=== PATIENT | male | born 1960 | race Caucasian/White ===

== ENCOUNTER 2016-10-12 11:22 | Inpatient (IN) | payer OTHER ==
[~2016-10-12] VITALS: Ht 190.5 cm; Wt 107.5 kg
[~2016-10-12 11:22] MED LIST: ABIL30TA2 PO; ARIP1TAB7 PO; ASPI325T PO; ATOR1TAB18 PO; ISOS20TA PO; ISOS30TA3 PO; LAMO200T PO; LIPI80TA PO; METO50TA11 PO; TOPR50TA PO; TRAZ100T4 PO
[2016-10-12 12:25] LABS: AMPHETAMINE, URINE NEG (NEG); BARBITURATES, URINE NEG (NEG); COCAINE, URINE NEG (NEG)
[2016-10-12 12:28] LABS: AUTOMATED NEUTROPHIL # 5.7 TH/MM3 (1.8-7.7); BASOPHIL # 0.2 TH/MM3 (0-0.2); BASOPHIL % 1.5 % (0.0-2.0); EOSINOPHIL # 0.3 TH/MM3 (0-0.4); EOSINOPHIL % 2.6 % (0.0-4.0); HEMATOCRIT 47.5 % (39.0-51.0); HEMO FLAGS DIFF FINAL; LYMPH % 27.1 % (9.0-44.0); LYMPHOCYTE # 2.9 TH/MM3 (1.0-4.8); MEAN CELL VOLUME 96.4 FL (80.0-100.0); MEAN CORPUSCULAR HEMOGLOBIN 33.7 PG (27.0-34.0); MONO % 14.7 % (0.0-8.0); NEUT % 54.1 % (16.0-70.0); PLATELET COUNT 209 TH/MM3 (150-450); RED BLOOD COUNT 4.92 MIL/MM3 (4.50-5.90); RED CELL DISTRIBUTION WIDTH 13.9 % (11.6-17.2); WHITE BLOOD COUNT 10.6 TH/MM3 (4.0-11.0)
[2016-10-12 12:36] LABS: ALT (GPT) 78 U/L (12-78); ANION GAP 9 MEQ/L (5-15); AST (GOT) 61 U/L (15-37); BLOOD UREA NITROGEN 10 MG/DL (7-18); CHLORIDE 104 MEQ/L (98-107); GLOMERULAR FILTRATION RATE 75 ML/MIN (>89); POTASSIUM 4.3 MEQ/L (3.5-5.1); SODIUM (NA) 140 MEQ/L (136-145)
[2016-10-12 12:38] LABS: ALKALINE PHOSPHATASE 114 U/L (45-117); TOTAL BILIRUBIN ADULT 0.5 MG/DL (0.2-1.0)
--- NOTE | 2016-10-12 12:47 | PD ---
HPI Chief Complaint: Psychiatric Symptoms Time Seen by Provider: 12:43 Travel History International Travel<30 days: No Contact w/Intl Traveler<30days: No Traveled to known affect area: No History of Present Illness HPI 56-year-old male that presents to the ED for evaluation of psych. [facility] ideation. Patient states that he is bipolar and his been out of his medications for a couple days. Per patient he is also having visual and auditory hallucinations and he feels suicidal. Per patient he symptoms are moderate. He denies any actual plan but states that he wants to . He denies any homicidal ideation. He does have a history of previous ACS as well as hypertension and states that he does take these medications but he does not take the psychiatric medications. Patient is a poor historian and doesn't really know what medications he takes. All he knows is he takes metoprolol and some other medications. No fevers chills or sweats. No other medical complaints. Symptoms have been worsening for the past couple days since he stopped taking his medications. Nothing makes this better or worse. PFSH Past Medical History Asthma: No Bipolar Disorder: Yes Anxiety: Yes Depression: Yes Heart Rhythm Problems: No Cancer: No Cardiac Catheterization: Yes Cardiovascular Problems: Yes (Stents X9) High Cholesterol: Yes Chest Pain: Yes Congestive Heart Failure: Yes COPD: Yes Coronary Artery Disease: Yes Diminished Hearing: No Endocrine: No Genitourinary: No Hypertension: Yes Immune Disorder: No Musculoskeletal: No Neurologic: No Psychiatric: Yes Reproductive: No Respiratory: Yes Sleep Apnea: No Past Surgical History Body Medical Devices: Stents Cardiac Surgery: Yes (9 cardiac stents ) Coronary Stent: Yes (9) Social History Alcohol Use: No Tobacco Use: No Substance Use: No Allergies-Medications (Allergen,Severity, Reaction): Coded Allergies: Cogentin (Verified Allergy, Severe, Irritability/Anxiety, 07/16/16) Violent behavior Benztropine (Verified Allergy, Unknown, 07/30/16) Haldol (Verified Allergy, Unknown, 07/16/16) Lisinopril (Verified Allergy, Unknown, 07/16/16) Skillman (Verified Allergy, Unknown, 07/30/16) Niacin (Verified Allergy, Unknown, 07/30/16) Reported Meds & Prescriptions Reported Meds & Active Scripts Active Abilify (Aripiprazole) 30 Mg Tab 30 Mg PO DAILY 10 Days Reported Trazodone (Trazodone HCl) 100 Mg Tab 100 Mg PO Lamotrigine 200 Mg Tab 200 Mg PO Toprol XL (Metoprolol Succinate) 50 Mg Tab 100 Mg PO Isosorbide Mononitrate ER (Isosorbide Mononitrate) 30 Mg Keisha 15 Mg PO Lipitor (Atorvastatin Calcium) 80 Mg Tab 80 Mg PO HS Aspirin 325 Mg Tab 325 Mg PO DAILY Abilify (Aripiprazole) 20 Mg Tab 30 Mg PO Metoprolol Succinate ER 24 HR (Metoprolol Succinate) 50 Mg Tab 50 Mg PO DAILY Isosorbide Mononitrate 20 Mg Tab 15 Mg PO DAILY Atorvastatin (Atorvastatin Calcium) 80 Mg Tab 80 Mg PO HS Aspirin 325 Mg Tab 325 Mg PO DAILY Review of Systems ROS Limitations: Psychotic, Poor Historian General / Constitutional: No: Fever, Chills, Weight Gain, Weight Loss, Other Eyes: No: Diploplia, Blurred Vision, Photophobia, Drainage, Redness, Foreign Body Sensation, Pain, Tearing, Blind Spots, Visual changes, Blindness, Other HENT: No: Headaches, Vertigo, Lightheadedness, Sore Throat, Rhinitis, Rhinorrhea, Congestion, Nosebleed, Neck Stiffness, Neck Pain, Masses, Gingival Bleeding, Dental Difficulties, Ear Discharge, Earache, Other Cardiovascular: No: Chest Pain or Discomfort, Palpitations, Irregular Rhythm, Tachycardia, Diaphoresis, Syncope, Dyspnea on exertion, Varicosities, Edema, Cyanosis, Varicosities, Phlebitis, Claudication, Other Respiratory: No: Cough, Shortness of Breath, Wheezing, Sneezing, Orthopnea, Hemoptysis, Stridor, Night Sweats, Pleuritic Pain, Other Gastrointestinal: No: Nausea, Vomiting, Diarrhea, Abdominal Pain, Hematemesis, Hematochezia, Constipation, Changes in Bowel Habits, Indigestion, Dysphagia, Loss of Appetite, Other Genitourinary: No: Urgency, Frequency, Dysuria, Nocturia, Hematuria, Decreased Urinary Output, Oliguria, Hesitancy, Dribbling, Incontinence, Pelvic Pain, Flank Pain, Dyspareunia, Discharge, Dysmenorrhea, Menorrhagia, Metorrhagia, Vaginal Bleeding, Other Musculoskeletal: No: Myalgias, Arthralgias, Limited ROM, Weakness, Cramping, Edema, Pain, Atrophy, Other Neurologic: No: Weakness, Dizziness, Syncope, Focal Abnormalities, Coordination Problem, Tremor, Ataxia, Headache, Change in Mentation, Slurred Speech, Paresthesia, Incontinence, Seizures, Sensory Disturbance, Other Psychiatric: Positive: Depression, Suicidal Ideations, Disorder of Thought, No : Anxiety, Mood Disorder, Substance Abuse, Homicidal Ideation, Other Endocrine: No: Heat Intolerance, Cold Intolerance, Polyuria, Polydipsia, Other Hematologic/Lymphatic: No: Easy Bruising, Lymph Node Enlargement, Other Physical Exam Exam Limitations: Poor Historian, Psychotic Narrative GENERAL: SKIN: Warm and dry. HEAD: Atraumatic. Normocephalic. EYES: Pupils equal and round. No scleral icterus. No injection or drainage. ENT: No nasal bleeding or discharge. Mucous membranes pink and moist. Tongue is midline. No uvula deviation. NECK: Trachea midline. No JVD. CARDIOVASCULAR: Regular rate and rhythm. No murmurs, S3, S4. RESPIRATORY: No accessory muscle use. Clear to auscultation. Breath sounds equal bilaterally. GASTROINTESTINAL: Abdomen soft, non-tender, nondistended. Hepatic and splenic margins not palpable. MUSCULOSKELETAL: Extremities without clubbing, cyanosis, or edema. No obvious deformities. Full range of motion of the upper and lower extremity bilaterally. 2+ pulses bilaterally. NEUROLOGICAL: Awake and alert. No obvious cranial nerve deficits. Motor grossly within normal limits. Five out of 5 muscle strength in the arms and legs. Normal speech. PSYCHIATRIC: Psychotic mood and affect; insight and judgment questionable secondary to psychosis Data Data Orders Complete Blood Count With Diff (10/12/16 11:37) Comprehensive Metabolic Panel (10/12/16 11:37) Psych Screen (10/12/16 11:37) Drug Screen, Random Urine (10/12/16 11:37) Alcohol (Ethanol) (10/12/16 11:37) Labs Laboratory Tests Test 10/12/16 10/12/16 11:35 11:55 White Blood Count 10.6 TH/MM3 Red Blood Count 4.92 MIL/MM3 Hemoglobin 16.6 GM/DL Hematocrit 47.5 % Mean Corpuscular Volume 96.4 FL Mean Corpuscular Hemoglobin 33.7 PG Mean Corpuscular Hemoglobin 35.0 % Concent Red Cell Distribution Width 13.9 % Platelet Count 209 TH/MM3 Mean Platelet Volume 8.7 FL Neutrophils (%) (Auto) 54.1 % Lymphocytes (%) (Auto) 27.1 % Monocytes (%) (Auto) 14.7 % Eosinophils (%) (Auto) 2.6 % Basophils (%) (Auto) 1.5 % Neutrophils # (Auto) 5.7 TH/MM3 Lymphocytes # (Auto) 2.9 TH/MM3 Monocytes # (Auto) 1.6 TH/MM3 Eosinophils # (Auto) 0.3 TH/MM3 Basophils # (Auto) 0.2 TH/MM3 CBC Comment DIFF FINAL Differential Comment Sodium Level 140 MEQ/L Potassium Level 4.3 MEQ/L Chloride Level 104 MEQ/L Carbon Dioxide Level 27.0 MEQ/L Anion Gap 9 MEQ/L Blood Urea Nitrogen 10 MG/DL Creatinine 1.02 MG/DL Estimat Glomerular Filtration 75 ML/MIN Rate Random Glucose 75 MG/DL Calcium Level 9.4 MG/DL Total Bilirubin 0.5 MG/DL Aspartate Amino Transf 61 U/L (AST/SGOT) Alanine Aminotransferase 78 U/L (ALT/SGPT) Alkaline Phosphatase 114 U/L Total Protein 8.4 GM/DL Albumin 3.9 GM/DL Ethyl Alcohol Level 4 MG/DL Urine Opiates Screen NEG Urine Barbiturates Screen NEG Urine Amphetamines Screen NEG Urine Benzodiazepines Screen NEG Urine Cocaine Screen NEG Urine Cannabinoids Screen NEG MDM Medical Decision Making Medical Screen Exam Complete: Yes Emergency Medical Condition: Yes Medical Record Reviewed: Yes Interpretation(s) CBC & BMP Diagram 10/12/16 11:35 LFTs WNL tox negative Differential Diagnosis Depression versus suicidal ideation versus anxiety versus adjustment disorder versus mood disorder versus bipolar disorder versus schizophrenia versus paranoid disorder versus psychosis versus substance abuse versus alcohol abuse versus alcohol induced psychosis versus homicidality addition versus cutting versus personality disorder Narrative Course 56-year-old male that presents to the ED for evaluation of psych. Patient was properly examined and was found to have signs and symptoms consistent with psychiatric illness. Labs were drawn. Patient was medically cleared. Okay to be seen by psych. Mental health screening was discussed with the patient. Diagnosis Primary Impression: Bipolar disorder current episode depressed Qualified Code: F31.5 - Bipolar disorder, current episode depressed, severe, with psychotic features Yoel Alva Oct 12, 2016 12:47
[2016-10-12 13:12] VITALS: BP 101/56; PULSE 64; RESP 16; TEMP 98.1; O2SAT 95
[2016-10-12] MEDS ORDERED: LORA10TA PO (14:11)
[2016-10-12] MEDS ORDERED: NITR1SUB3 SL (14:11)
--- NOTE | 2016-10-12 16:01 | PD ---
History of Present Illness Chief Complaint: Psychiatric Symptoms Time Seen by Provider: 15:25 Travel History International Travel<30 Days: No Contact w/Intl Traveler<30days: No Known affected area: No Legal Status Legal Status: Enrique Act Enrique Act Signed By: [facility] History of Present Illness: History of Present Illness HPI 56-year-old male with history of bipolar disorder under a BA initiated by [facility] psychiatrist. As per the BA report patient is psychotic and verbalizes auditory hallucinations and suicidal ideation. The ed documentation is as follows; " Patient states that he is bipolar and his been out of his medications for a couple days. Per patient he is also having visual and auditory hallucinations and he feels suicidal. He denies any actual plan but states that he wants to . He denies any homicidal ideation. " Patient is seen in J pod. He is in bed with eyes closed. He responds to his name called. He appears regressed and childlike. He answers some questions but does not elaborate. no eye contact. During interview he scans the room and looks behind him . When asked the reason states " I hear voices and the mccabe feel like they are breathing. The voices tell me it's time to ". He also tells me that he has not been sleeping well, is having more nightmares and that he feels depressed. he reports medication compliance. Has been residing at the [facility]. Current toxicology is negative. His previous hospitalization was in May 2016 and he was last evaluated in the ED in Jul 2016. PFSH Past Medical History Asthma: No Bipolar Disorder: Yes Anxiety: Yes Depression: Yes Heart Rhythm Problems: No Cancer: No Cardiac Catheterization: Yes Cardiovascular Problems: Yes (Stents X9) High Cholesterol: Yes Chest Pain: Yes Congestive Heart Failure: Yes COPD: Yes Coronary Artery Disease: Yes Diminished Hearing: No Endocrine: No Genitourinary: No Hypertension: Yes Immune Disorder: No Musculoskeletal: No Neurologic: No Psychiatric: Yes Reproductive: No Respiratory: Yes Myocardial Infarction: Yes (X5) Sleep Apnea: No Past Surgical History Body Medical Devices: Stents Cardiac Surgery: Yes (9 cardiac stents ) Coronary Stent: Yes (9) Other Surgery: Yes (Stents) Psychiatric History Psychiatric History Hx Psychiatric Treatment: HE WAS [facility] H[facility] ADMITTED TO [facility] IN MAY 2016 AND IN APR, [facility] History of Inpatient Treatment: Yes Guns or firearms in home: No Social History Single male who is living at the [facility]. he is originally from [place]. He provides no other information. Hx Alcohol Use: No Hx Tobacco Use: No Hx Substance Use: No Substance Use Type: Marijuana Hx of Substance Use Treatment: No Family Psychiatric History Unknown Allergies-Medications (Allergen,Severity, Reaction): Coded Allergies: Cogentin (Verified Allergy, Severe, Irritability/Anxiety, 07/16/16) Violent behavior Benztropine (Verified Allergy, Unknown, 07/30/16) Haldol (Verified Allergy, Unknown, 07/16/16) Lisinopril (Verified Allergy, Unknown, 07/16/16) Morenci (Verified Allergy, Unknown, 07/30/16) Niacin (Verified Allergy, Unknown, 07/30/16) Reported Meds & Prescriptions Reported Meds & Active Scripts Active Abilify (Aripiprazole) 30 Mg Tab 30 Mg PO DAILY 10 Days Reported Loratadine 10 Mg Tab 10 Mg PO DAILY PRN Nitroglycerin SL (Nitroglycerin) 0.4 Mg Subl 0.4 Mg SL DIRECTED PRN ONE TABLET UNDER THE TONGUE NEEDED FOR CHEST PAIN, MAY REPEAT EVERY FIVE MINUTES FOR A TOTAL OF 3 DOSES OR CALL 911 IF NO RELIEF Trazodone (Trazodone HCl) 100 Mg Tab 100 Mg PO Lamotrigine 200 Mg Tab 200 Mg PO BID Isosorbide Mononitrate ER (Isosorbide Mononitrate) 30 Mg Keisha 15 Mg PO Metoprolol Succinate ER 24 HR (Metoprolol Succinate) 50 Mg Tab 50 Mg PO DAILY Atorvastatin (Atorvastatin Calcium) 80 Mg Tab 80 Mg PO HS Aspirin 325 Mg Tab 325 Mg PO DAILY Review of Systems ROS Limitations: Psychotic Exam Alert: Yes [place]: Person (ox4) Mood: Depressed Affect: Restricted Speech: Clear (minimal interaction) Eye Contact: None Memory Intact: Comment (not tetsed) Hallucinations: Auditory, Visual Delusions: No Suicidal: Ideation (unable to contrat.) Homicidal: Ideation (deneis any) Insight/Judgement Poor. Poor MDM Medical Decision Making Medical Record Reviewed: Yes Assessment/Plan 56 year old male , under a BA initiated by [facility] the [facility]. Patient presents with psychosis including AH that say " time to ". He endorses feeling increasingly depressed as well despite medication compliance reported to me. There is conflicting information as he reported to ed that he was not taking his medication. At this time he will be admitted for further evaluation, to maintain safety and to adjust medications. Orders Complete Blood Count With Diff (10/12/16 11:37) Comprehensive Metabolic Panel (10/12/16 11:37) Psych Screen (10/12/16 11:37) Drug Screen, Random Urine (10/12/16 11:37) Alcohol (Ethanol) (10/12/16 11:37) Diet Regular Basic (10/12/16 Dinner) Results Vital Signs Date Time Temp Pulse Resp B/P Pulse Ox O2 Delivery O2 Flow Rate FiO2 10/12/16 13:12 98.1 64 16 101/56 95 Room Air Laboratory Tests Test 10/12/16 10/12/16 11:35 11:55 White Blood Count 10.6 Red Blood Count 4.92 Hemoglobin 16.6 Hematocrit 47.5 Mean Corpuscular Volume 96.4 Mean Corpuscular Hemoglobin 33.7 Mean Corpuscular Hemoglobin 35.0 Concent Red Cell Distribution Width 13.9 Platelet Count 209 Mean Platelet Volume 8.7 Neutrophils (%) (Auto) 54.1 Lymphocytes (%) (Auto) 27.1 Monocytes (%) (Auto) 14.7 Eosinophils (%) (Auto) 2.6 Basophils (%) (Auto) 1.5 Neutrophils # (Auto) 5.7 Lymphocytes # (Auto) 2.9 Monocytes # (Auto) 1.6 Eosinophils # (Auto) 0.3 Basophils # (Auto) 0.2 CBC Comment DIFF FINAL Differential Comment Sodium Level 140 Potassium Level 4.3 Chloride Level 104 Carbon Dioxide Level 27.0 Anion Gap 9 Blood Urea Nitrogen 10 Creatinine 1.02 Estimat Glomerular Filtration 75 Rate Random Glucose 75 Calcium Level 9.4 Total Bilirubin 0.5 Aspartate Amino Transf 61 (AST/SGOT) Alanine Aminotransferase 78 (ALT/SGPT) Alkaline Phosphatase 114 Total Protein 8.4 Albumin 3.9 Ethyl Alcohol Level 4 Urine Opiates Screen NEG Urine Barbiturates Screen NEG Urine Amphetamines Screen NEG Urine Benzodiazepines Screen NEG Urine Cocaine Screen NEG Urine Cannabinoids Screen NEG Diagnosis Primary Impression: Bipolar disorder current episode depressed Admitting Information Admitting Physician Requests: Admit (Dr. Lopez) Problem Qualifiers Primary Impression: Bipolar disorder current episode depressed Qualified Code: F31.5 - Bipolar disorder, current episode depressed, severe, with psychotic features Luciana Mcnamara Oct 12, 2016 16:01
[2016-10-12] MEDS ORDERED: MAGNESIUM HYDROXIDE SUSP 30 ML CUP PO PRN (16:15)
[2016-10-12] MEDS ORDERED: ALUMINUM/MAGNESIUM/SIMETH 30 ML CUP PO PRN (16:15)
[2016-10-12] MEDS ORDERED: ACETAMINOPHEN 325 MG TAB PO PRN (16:15)
[2016-10-12] MEDS ORDERED: NITROGLYCERIN 0.4 MG SL 25 TABS/BTL SL PRN (16:45)
[2016-10-12 18:19] VITALS: BP 156/80; PULSE 65; RESP 18; O2SAT 96
[2016-10-12 18:31] VITALS: BP 127/70; PULSE 60; TEMP 98.3
[2016-10-12] MEDS: ATORVASTATIN 80 MG TAB PO SCH (20:55)
[2016-10-12] MEDS: lamoTRIgine 100 MG TAB PO SCH (20:55)
[2016-10-13 05:44] VITALS: BP 124/65; PULSE 73; RESP 16; TEMP 98.3; O2SAT 96
[2016-10-13] MEDS: ASPIRIN 325 MG TAB PO SCH (08:24)
[2016-10-13] MEDS: ARIPiprazole 30 MG TAB PO SCH (08:24)
[2016-10-13] MEDS: lamoTRIgine 100 MG TAB PO SCH ×2 (08:25→20:39)
[2016-10-13] MEDS: METOPROLOL SUCCINATE 50 MG EXTENDED RELEASE TAB PO SCH (08:25)
[2016-10-13 11:42] LABS: ANION GAP 7 MEQ/L (5-15); BICARBONATE 29.3 MEQ/L (21.0-32.0); BLOOD UREA NITROGEN 11 MG/DL (7-18); CHLORIDE 103 MEQ/L (98-107); GLOMERULAR FILTRATION RATE 69 ML/MIN (>89); HDL CHOLESTEROL 32.8 MG/DL (40.0-60.0); LDL CHOLESTEROL 63 MG/DL (0-99); POTASSIUM 4.3 MEQ/L (3.5-5.1); SODIUM (NA) 139 MEQ/L (136-145)
[2016-10-13 15:38] LABS: HEMOGLOBIN A1b 1.6 %; HEMOGLOBIN Ao 85.3 %; HEMOGLOBIN LA1C 2.1 %; HEMOGLOBIN P3 3.8 %
[2016-10-13 19:00] VITALS: BP 125/70; PULSE 56; RESP 16; TEMP 98.4; O2SAT 96
[2016-10-13] MEDS ORDERED: LORATADINE 10 MG TAB PO PRN (19:45)
[2016-10-13] MEDS ORDERED: ACETAMINOPHEN 325 MG TAB PO PRN (19:45)
[2016-10-13] MEDS ORDERED: MAGNESIUM HYDROXIDE SUSP 30 ML CUP PO PRN (19:45)
[2016-10-13] MEDS ORDERED: ALUMINUM/MAGNESIUM/SIMETH 30 ML CUP PO PRN (19:45)
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
[2016-10-13] MEDS: traZODone HCL 50 MG TAB PO PRN (20:39)
[2016-10-13] MEDS: ATORVASTATIN 80 MG TAB PO SCH (20:39)
[2016-10-14 06:23] VITALS: BP 101/50; PULSE 56; RESP 16; TEMP 97.2; O2SAT 98
[2016-10-14 07:37] LABS: ANION GAP 9 MEQ/L (5-15); BICARBONATE 28.4 MEQ/L (21.0-32.0); BLOOD UREA NITROGEN 13 MG/DL (7-18); CHLORIDE 104 MEQ/L (98-107); GLOMERULAR FILTRATION RATE 63 ML/MIN (>89); HDL CHOLESTEROL 34.3 MG/DL (40.0-60.0); LDL CHOLESTEROL 67 MG/DL (0-99); POTASSIUM 4.1 MEQ/L (3.5-5.1); SODIUM (NA) 141 MEQ/L (136-145)
--- NOTE | 2016-10-14 08:27 | PD.CONS ---
[facility] Request[facility] By Psychiatry Team Reason for Consult Medical management Primary Care Physician [facility] Diagnoses: History of Present Illness Pt. is 56-year-old male with primary medical history of HTN, [place] 5, TIA, HLD who came in today ED under Enrique act by the [place] secondary to suicidal ideation. As per record, patient states that he is bipolar and he cannot of his medications for a few days. Patient is having visual and auditory hallucinations and he feels suicidal. He is now admitted to inpatient psychiatry unit for further evaluation. Consulted for medical management. Patient seen today. Reports he is doing well. States that he is still having visual and auditory hallucinations. Appears to be calm. Verified his medical problems. States is taking isosorbide, atorvastatin and metoprolol. Denies pain and discomfort. Denies SOB/ dyspnea. Denies chest pain, palpitations, headaches, dizziness. Denies fevers, chills, n/v/d. Review of Systems Except as stated in HPI: all other systems reviewed are Neg Past Family Social History Allergies: Coded Allergies: Cogentin (Verified Allergy, Severe, Irritability/Anxiety, 07/16/16) Violent behavior Benztropine (Verified Allergy, Unknown, 07/30/16) Haldol (Verified Allergy, Unknown, 07/16/16) Lisinopril (Verified Allergy, Unknown, 07/16/16) [place] (Verified Allergy, Unknown, 07/30/16) Niacin (Verified Allergy, Unknown, 07/30/16) Past Medical History CAD HTN HLD [place] x5 Bipolar disorder Past Surgical History Cardiac Stenting Cardiac Cath Reported Medications Abilify (Aripiprazole) 30 Mg Tab 30 Mg PO DAILY 10 Days Trazodone (Trazodone HCl) 100 Mg Tab 100 Mg PO Lamotrigine 200 Mg Tab 200 Mg PO Toprol XL (Metoprolol Succinate) 50 Mg Tab 100 Mg PO Isosorbide Mononitrate ER (Isosorbide Mononitrate) 30 Mg Keisha 15 Mg PO Lipitor (Atorvastatin Calcium) 80 Mg Tab 80 Mg PO HS Aspirin 325 Mg Tab 325 Mg PO DAILY Metoprolol Succinate ER 24 HR (Metoprolol Succinate) 50 Mg Tab 50 Mg PO DAILY Isosorbide Mononitrate 20 Mg Tab 15 Mg PO DAILY Atorvastatin (Atorvastatin Calcium) 80 Mg Tab 80 Mg PO HS Aspirin 325 Mg Tab 325 Mg PO DAILY Active Ordered Medications Current Medications Medications (Trade) Dose Ordered Sig/Jose Roberto Route Start Time Stop Time Status Last Admin (Tylenol) 650 mg Q4H PRN PO 10/12/16 16:15 (Milk Of Magnesia Liq) 30 ml DAILY PRN PO 10/12/16 16:15 (Mag-Al Plus Susp Liq) 30 ml Q6H PRN PO 10/12/16 16:15 (Abilify) 30 mg DAILY PO 10/13/16 09:00 10/13/16 08:24 (Aspirin) 325 mg DAILY PO 10/13/16 09:00 10/13/16 08:24 (Lipitor) 80 mg HS PO 10/12/16 21:00 10/13/16 20:39 (LaMICtal) 200 mg BID PO 10/12/16 21:00 10/13/16 20:39 (Toprol Xl) 50 mg DAILY PO 10/13/16 09:00 10/13/16 08:25 (Nitrostat Sl) 0.4 mg UNSCH PRN SL 10/12/16 16:45 (Tylenol) 650 mg Q4H PRN PO 10/13/16 19:45 (Milk Of Magnesia Liq) 30 ml DAILY PRN PO 10/13/16 19:45 (Mag-Al Plus Susp Liq) 30 ml Q6H PRN PO 10/13/16 19:45 (Habitrol 21 Mg Patch.24 Hr) 1 patch DAILY T-DERMAL 10/14/16 09:00 (Desyrel) 50 mg HS PRN PO 10/13/16 19:45 10/13/16 20:39 (Claritin) 10 mg DAILY PRN PO 10/13/16 19:45 Family History Does not know family medical history Social History Denies alcohol use Denies illicit drug use Tobacco use half a pack per day, trying to cut back he used to smoke 2-3 packs per day Physical Exam Vital Signs Vital Signs Date Time Temp Pulse Resp B/P Pulse Ox O2 Delivery O2 Flow Rate FiO2 10/14/16 06:23 97.2 56 16 101/50 98 10/13/16 19:00 98.4 56 16 125/70 96 Physical Exam GENERAL: This is a well-nourished, well-developed patient, in no apparent distress. SKIN: No rashes, ecchymoses or lesions. Cool and dry. HEAD: Atraumatic. Normocephalic. No temporal or scalp tenderness. EYES: Pupils equal round and reactive. Extraocular motions intact. No scleral icterus. No injection or drainage. ENT: Nose without bleeding. Throat without erythema. Uvula midline. Airway patent. NECK: Trachea midline. No JVD or lymphadenopathy. CARDIOVASCULAR: Regular rate and rhythm without murmurs, gallops, or rubs. RESPIRATORY: Diminished bases.. No wheezes, rales, or rhonchi. GASTROINTESTINAL: Abdomen soft, non-tender, nondistended. Bowel sounds active 4. MUSCULOSKELETAL: Extremities without clubbing, cyanosis, or edema. No joint tenderness, effusion, or edema noted. NEUROLOGICAL: Awake and alert. No focal neuro deficit. Motor and sensory grossly within normal limits. Normal speech. Laboratory Laboratory Tests Test 10/13/16 10/14/16 10:57 06:36 Sodium Level 139 141 Potassium Level 4.3 4.1 Chloride Level 103 104 Carbon Dioxide Level 29.3 28.4 Anion Gap 7 9 Blood Urea Nitrogen 11 13 Creatinine 1.09 1.18 Estimat Glomerular Filtration 69 63 Rate Random Glucose 98 98 Hemoglobin A1c 5.8 Calcium Level 9.2 8.9 Triglycerides Level 135 98 Cholesterol Level 123 121 LDL Cholesterol 63 67 HDL Cholesterol 32.8 34.3 Cholesterol/HDL Ratio 3.75 3.52 Result Diagram: 10/12/16 1135 10/14/16 0636 Assessment and Plan Problem List: (1) Bipolar disorder current episode depressed ICD Code: F31.30 Status: Acute (2) PTSD (post-traumatic stress disorder) ICD Code: F43.10 Status: Acute (3) CAD (coronary artery disease) ICD Code: I25.10 Status: Chronic (4) TIA (transient ischemic attack) ICD Code: G45.9 Status: Resolved (5) HLD (hyperlipidemia) ICD Code: E78.5 Status: Chronic (6) HTN (hypertension) ICD Code: I10 Status: Chronic Assessment and Plan Pt. is 56-year-old male with primary medical history of HTN, [place] 5, TIA, HLD who came [facility] today [facility] to suicidal ideation. As per record, patient states that he is bipolar and he cannot of his medications for a few days. Patient is having visual and auditory hallucinations and he feels suicidal. He is now admitted to inpatient psychiatry unit for further evaluation. Consulted for medical management. Bipolar disorder, suicidal ideation - managed by psychiatry team CAD Hx [place] HTN - continue with home meds metoprolol 50 mg daily, ASA 325 mg daily - Restart isosorbide 15 mg Daily - Monitor BP trend Tobacco abuse - counseled. Nicotine patch DVT prop ambulatory Thank you for this consultation. We will follow patient with you. Written by Robert Verdugo, acting as scribe for Dr. Gillespie on 10/14/16 at 11:19. The documentation accurately reflects the work performed [id number] by me Dr. Gillespie on 10/14/16 at 11:19. Code Status Full code Discussed Condition With Patient, nursing Problem Qualifiers (1) Bipolar disorder current episode depressed: Qualified Code: F31.5 - Bipolar disorder, current episode depressed, severe, with psychotic features Robert Pineda Oct 14, 2016 08:27 Shelley Gillespie MD Oct 14, 2016 14:59
[2016-10-14] MEDS: lamoTRIgine 100 MG TAB PO SCH ×2 (08:37→20:27)
[2016-10-14] MEDS: ARIPiprazole 30 MG TAB PO SCH (08:37)
[2016-10-14] MEDS: ASPIRIN 325 MG TAB PO SCH (08:39)
[2016-10-14] MEDS: METOPROLOL SUCCINATE 50 MG EXTENDED RELEASE TAB PO SCH (08:39)
[2016-10-14] MEDS: NICOTINE 21 MG/24 HR PATCH T-DERMAL SCH (08:39)
[2016-10-14 17:59] VITALS: BP 147/78; PULSE 59; RESP 16; TEMP 98.8; O2SAT 97
[2016-10-14 18:00] VITALS: BP 147/78; PULSE 59; RESP 16; TEMP 98.8; O2SAT 97
--- NOTE | 2016-10-14 19:46 | HHI.PYPN ---
Subjective Remarks Pt seen and discussed with staff. He reports that he continues to have AH that tell him "It's time to !" He is tolerating Abilify without side effects. He has been withdrawn and states that he ted better by keeping to himself. No HI. Review of Systems Psychiatric: COMPLAINS OF: Hallucinations Objective Alert: Yes [place]: Person, Place, Date, Situation Mood: Depressed Affect: Restricted Memory Intact: Comment (not tetsed) Hallucinations: Auditory, Visual Delusions: No Delusion Type: Other (none) Suicidal: Ideation (denies SI, but admits to command AH instructing him that it is "time to ".) Homicidal: Ideation (denies) Insight/Judgement fair Labs Test 10/14/16 06:36 Sodium Level 141 MEQ/L Potassium Level 4.1 MEQ/L Chloride Level 104 MEQ/L Carbon Dioxide Level 28.4 MEQ/L Anion Gap 9 MEQ/L Blood Urea Nitrogen 13 MG/DL Creatinine 1.18 MG/DL Estimat Glomerular Filtration 63 ML/MIN Rate Random Glucose 98 MG/DL Calcium Level 8.9 MG/DL Triglycerides Level 98 MG/DL Cholesterol Level 121 MG/DL LDL Cholesterol 67 MG/DL HDL Cholesterol 34.3 MG/DL Cholesterol/HDL Ratio 3.52 RATIO Vitals/IOs Vital Signs Date Time Temp Pulse Resp B/P Pulse Ox O2 Delivery O2 Flow Rate FiO2 10/14/16 18:00 98.8 59 16 147/78 97 10/12/16 13:12 Room Air Assessment & Plan Problem List: (1) Bipolar disorder current episode depressed ICD Code: F31.30 (2) PTSD (post-traumatic stress disorder) ICD Code: F43.10 Assessment & Plan Continue current tx plan. Continue hospitalization for safety. Estimated LOS: days Justification for Cont. Inpt. safety Request HC Surrog/Guard Advoc?: No Problem Qualifiers (1) Bipolar disorder current episode depressed: Qualified Code: F31.5 - Bipolar disorder, current episode depressed, severe, with psychotic features Taya Santos MD Oct 14, 2016 19:46
[2016-10-14] MEDS: traZODone HCL 50 MG TAB PO PRN (20:27)
[2016-10-14] MEDS: ATORVASTATIN 80 MG TAB PO SCH (20:27)
[2016-10-15 05:52] VITALS: BP 130/63; PULSE 59; RESP 18; TEMP 98.1; O2SAT 97
[2016-10-15] MEDS: ISOSORBIDE MONONITRATE 30 MG TAB PO SCH (06:25)
[2016-10-15 08:41] LABS: HEMOGLOBIN A1a 0.9 %; HEMOGLOBIN A1b 1.6 %; HEMOGLOBIN Ao 85.3 %; HEMOGLOBIN P3 3.7 %
[2016-10-15] MEDS: NICOTINE 21 MG/24 HR PATCH T-DERMAL SCH (09:00)
[2016-10-15] MEDS: ARIPiprazole 30 MG TAB PO SCH (09:37)
[2016-10-15] MEDS: METOPROLOL SUCCINATE 50 MG EXTENDED RELEASE TAB PO SCH (09:37)
[2016-10-15] MEDS: ASPIRIN 325 MG TAB PO SCH (09:38)
[2016-10-15] MEDS: lamoTRIgine 100 MG TAB PO SCH ×2 (09:38→21:51)
--- NOTE | 2016-10-15 13:45 | HHI.PYPN ---
Subjective Remarks Pt. seen and continues to have problems with depression. Objective Alert: Yes [place]: Person, Place, Date, Situation Mood: Depressed Affect: Restricted Memory Intact: Comment (not tetsed) Hallucinations: Auditory, Visual Delusions: No Delusion Type: Other (none) Suicidal: Ideation (denies SI, but admits to command AH instructing him that it is "time to ".) Homicidal: Ideation (denies) Insight/Judgement significantly impaired. Vitals/IOs Vital Signs Date Time Temp Pulse Resp B/P Pulse Ox O2 Delivery O2 Flow Rate FiO2 10/15/16 05:52 98.1 59 18 130/63 97 10/12/16 13:12 Room Air Assessment & Plan Problem List: (1) Bipolar disorder current episode depressed ICD Code: F31.30 (2) PTSD (post-traumatic stress disorder) ICD Code: F43.10 Assessment & Plan Estimated LOS: days Justification for Cont. Inpt. Unable to care for self. Request HC Surrog/Guard Advoc?: No Problem Qualifiers (1) Bipolar disorder current episode depressed: Qualified Code: F31.5 - Bipolar disorder, current episode depressed, severe, with psychotic features Demetri Yuen MD Oct 15, 2016 13:45
--- NOTE | 2016-10-15 15:55 | HHI.PR ---
Subjective Remarks Follow-up visit HTN, TIA, HLD. Patient seen today. Reports she is doing well. Denies pain and discomfort. Denies SOB/ dyspnea. Denies chest pain, palpitations, headaches, dizziness. Denies fevers, chills, n/v/d. Objective Vitals Vital Signs Date Time Temp Pulse Resp B/P Pulse Ox O2 Delivery O2 Flow Rate FiO2 10/15/16 05:52 98.1 59 18 130/63 97 10/14/16 18:00 98.8 59 16 147/78 97 10/14/16 17:59 98.8 59 16 147/78 97 Result Diagram: 10/12/16 1135 10/14/16 0636 Objective Remarks GENERAL: This is a well-nourished, well-developed patient, in no apparent distress. SKIN: No rashes, ecchymoses or lesions. Cool and dry. HEAD: Atraumatic. Normocephalic. No temporal or scalp tenderness. EYES: Pupils equal round and reactive. Extraocular motions intact. No scleral icterus. No injection or drainage. ENT: Nose without bleeding. Throat without erythema. Uvula midline. Airway patent. NECK: Trachea midline. No JVD or lymphadenopathy. CARDIOVASCULAR: Regular rate and rhythm without murmurs, gallops, or rubs. RESPIRATORY: Diminished bases.. No wheezes, rales, or rhonchi. GASTROINTESTINAL: Abdomen soft, non-tender, nondistended. Bowel sounds active 4. MUSCULOSKELETAL: Extremities without clubbing, cyanosis, or edema. No joint tenderness, effusion, or edema noted. NEUROLOGICAL: Awake and alert. No focal neuro deficit. Motor and sensory grossly within normal limits. A/P Problem List: (1) Bipolar disorder current episode depressed ICD Code: F31.30 Status: Acute (2) PTSD (post-traumatic stress disorder) ICD Code: F43.10 Status: Acute (3) CAD (coronary artery disease) ICD Code: I25.10 Status: Chronic (4) TIA (transient ischemic attack) ICD Code: G45.9 Status: Resolved (5) HLD (hyperlipidemia) ICD Code: E78.5 Status: Chronic (6) HTN (hypertension) ICD Code: I10 Status: Chronic Assessment and Plan Pt. is 56-year-old male with primary medical history of HTN, [place] 5, TIA, HLD who came in today ED under [place] act by the [place] secondary to suicidal ideation. As per record, patient states that he is bipolar and he cannot of his medications for a few days. Patient is having visual and auditory hallucinations and he feels suicidal. He is now admitted to inpatient psychiatry unit for further evaluation. Consulted for medical management. Bipolar disorder, suicidal ideation - managed by psychiatry team CAD Hx [place] HTN - continue with home meds metoprolol 50 mg daily, ASA 325 mg daily - Restart isosorbide 15 mg Daily - Monitor BP trend. BP trend within normal. Controlled. Tobacco abuse - counseled. Nicotine patch DVT prop ambulatory Discussed with patient, nursing Stable from Hospitalist standpoint. We will sign off. Reconsult as needed. Written by Robert Verdugo, acting as scribe for Dr. Be on 10/15/16 at 14:05. All or portions of this note were transcribed by viraj Verdugo NP. I , Dr. Keegan Be personally performed the history, physical exam, and medical decision making; and confirmed the accuracy of the information in the transcribed note. Authenticated by Dr. Keegan Be on 10/15/16 at 14:05. Problem Qualifiers (1) Bipolar disorder current episode depressed: Qualified Code: F31.5 - Bipolar disorder, current episode depressed, severe, with psychotic features Robert Pineda Oct 15, 2016 15:55 Gena Be DO Oct 16, 2016 00:02
[2016-10-15 19:00] VITALS: BP 122/71; PULSE 59; RESP 20; TEMP 98.4; O2SAT 94
[2016-10-15] MEDS: ATORVASTATIN 80 MG TAB PO SCH (21:50)
[2016-10-15] MEDS: traZODone HCL 50 MG TAB PO PRN (21:52)
[2016-10-16 06:12] VITALS: BP 122/71; PULSE 57; RESP 16; TEMP 98; O2SAT 96
[2016-10-16] MEDS: ISOSORBIDE MONONITRATE 30 MG TAB PO SCH (07:00)
[2016-10-16] MEDS: NICOTINE 21 MG/24 HR PATCH T-DERMAL SCH (09:00)
[2016-10-16] MEDS: lamoTRIgine 100 MG TAB PO SCH (09:12)
[2016-10-16] MEDS: ARIPiprazole 30 MG TAB PO SCH (09:12)
[2016-10-16] MEDS: METOPROLOL SUCCINATE 50 MG EXTENDED RELEASE TAB PO SCH (09:12)
[2016-10-16] MEDS: ASPIRIN 325 MG TAB PO SCH (09:12)
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
== END 2016-10-16 13:00 | disposition home or self-care (01) | DRG 885 ==
LOC: NEPJ 11:22 → NEDA 16:16 → H270 17:51 → H260 10-13 13:15
PROVIDERS: ADMIT Psychiatry & Neurology Psychiatry; ATTEND Psychiatry & Neurology Psychiatry
DX: F31.30 Bipolar disorder, current episode depressed, mild or moderate severity, unspecified (principal); I10 Essential (primary) hypertension; E78.5 Hyperlipidemia, unspecified; F43.10 Post-traumatic stress disorder, unspecified; I25.2 Old myocardial infarction; Z95.5 Presence of coronary angioplasty implant and graft; Z59.0 Homelessness; Z79.82 Long term (current) use of aspirin; I25.10 Atherosclerotic heart disease of native coronary artery without angina pectoris; Z86.73 Personal history of transient ischemic attack (TIA), and cerebral infarction without residual deficits; Z72.0 Tobacco use
CPT/HCPCS: 80048; 80053; 80061; 80307; 80320; 83036; 85025; 99284

== ENCOUNTER 2016-11-21 12:50 | Emergency (ER) | payer OTHER ==
[~2016-11-21] VITALS: Ht 190.5 cm; Wt 110.0 kg
[~2016-11-21 12:50] MED LIST changes: -ARIP1TAB7 PO; -ISOS20TA PO; -LIPI80TA PO; +LORA10TA PO; +NITR1SUB3 SL; -TOPR50TA PO
[2016-11-21 13:03] VITALS: BP 138/86; PULSE 60; RESP 16; TEMP 98.2; O2SAT 95
--- NOTE | 2016-11-21 13:09 | PD ---
HPI . Suicidal ideation and hallucinations Chief Complaint: Psychiatric Symptoms Time Seen by Provider: 13:02 Travel History International Travel<30 days: No Contact w/Intl Traveler<30days: No History of Present Illness HPI Patient presents to us in police custody under a Enrique Act. He came to us from a clinic. He reported auditory and visual hallucinations for the last several days. He reported voices telling him that "it's time to ." Patient admits to poor by mouth intake. He is not taking his medications. He was subsequent sent here for further evaluation. [id number]: Psychiatric QUALITY: Visual and auditory hallucinations SEVERITY: Severe DURATION: 2 days TIMING: Continuous CONTEXT: History of bipolar disorder PFSH Past Medical History Asthma: No Bipolar Disorder: Yes Anxiety: Yes Depression: Yes Heart Rhythm Problems: No Cancer: No (per pt) Cardiac Catheterization: Yes Cardiovascular Problems: Yes (per pt 5 heart attacks 9 stints 05/2016) High Cholesterol: Yes Chest Pain: Yes Congestive Heart Failure: Yes COPD: Yes Coronary Artery Disease: Yes Diabetes: No (per pt) Diminished Hearing: No Endocrine: No Genitourinary: No Headaches: Yes (per pt migraines since 1978) Hypertension: Yes Immune Disorder: No Musculoskeletal: No Neurologic: No Psychiatric: Yes (per pt 1978) Reproductive: No Respiratory: Yes Myocardial Infarction: Yes (X5) Seizures: No (per pt) Sleep Apnea: No Past Surgical History Body Medical Devices: Stents Cardiac Surgery: Yes (9 cardiac stents ) Coronary Stent: Yes (9) Other Surgery: Yes (Stents) Social History Alcohol Use: No Tobacco Use: No Substance Use: No Allergies-Medications (Allergen,Severity, Reaction): Coded Allergies: Cogentin (Verified Allergy, Severe, Irritability/Anxiety, 07/16/16) Violent behavior Benztropine (Verified Allergy, Unknown, 07/30/16) Haldol (Verified Allergy, Unknown, 07/16/16) Lisinopril (Verified Allergy, Unknown, 07/16/16) [place] (Verified Allergy, Unknown, 07/30/16) Niacin (Verified Allergy, Unknown, 07/30/16) Reported Meds & Prescriptions Reported Meds & Active Scripts Active Abilify (Aripiprazole) 30 Mg Tab 30 Mg PO DAILY 10 Days Reported Loratadine 10 Mg Tab 10 Mg PO DAILY PRN Nitroglycerin SL (Nitroglycerin) 0.4 Mg Subl 0.4 Mg SL DIRECTED PRN ONE TABLET UNDER THE TONGUE NEEDED FOR CHEST PAIN, MAY REPEAT EVERY FIVE MINUTES FOR A TOTAL OF 3 DOSES OR CALL 911 IF NO RELIEF Trazodone (Trazodone HCl) 100 Mg Tab 100 Mg PO Lamotrigine 200 Mg Tab 200 Mg PO BID Isosorbide Mononitrate ER (Isosorbide Mononitrate) 30 Mg Keisha 15 Mg PO Metoprolol Succinate ER 24 HR (Metoprolol Succinate) 50 Mg Tab 50 Mg PO DAILY Atorvastatin (Atorvastatin Calcium) 80 Mg Tab 80 Mg PO HS Aspirin 325 Mg Tab 325 Mg PO DAILY Review of Systems Except as stated in HPI: all other systems reviewed are Neg Psychiatric: Positive: Depression, Suicidal Ideations, Disorder of Thought, Mood Disorder, No: Substance Abuse Physical Exam Narrative GENERAL: Slow, deliberate speech SKIN: Warm and dry. HEAD: Atraumatic. Normocephalic. EYES: Pupils equal and round. Extraocular movements are intact. ENT: No nasal bleeding or discharge. Mucous membranes pink and moist. NECK: Trachea midline. Neck is supple. CARDIOVASCULAR: Regular rate and rhythm. RESPIRATORY: No accessory muscle use. MUSCULOSKELETAL: No obvious deformities. No edema. NEUROLOGICAL: Awake and alert. No obvious cranial nerve deficits. Motor grossly within normal limits. Normal speech. PSYCHIATRIC: Depressed mood. Flat affect. Insight and judgment poor. Data Data Last Documented VS Vital Signs Date Time Temp Pulse Resp B/P Pulse Ox O2 Delivery O2 Flow Rate FiO2 11/21/16 13:03 98.2 60 16 138/86 95 Orders Complete Blood Count With Diff (11/21/16 13:02) Comprehensive Metabolic Panel (11/21/16 13:02) Urinalysis - C+S If Indicated (11/21/16 13:02) Electrocardiogram (11/21/16 13:02) Psych Screen (11/21/16 13:02) Drug Screen, Random Urine (11/21/16 13:02) Labs Laboratory Tests Test 11/21/16 11/21/16 11/21/16 13:20 14:05 14:10 White Blood Count 9.3 TH/MM3 Red Blood Count 5.02 MIL/MM3 Hemoglobin 17.0 GM/DL Hematocrit 48.1 % Mean Corpuscular Volume 95.7 FL Mean Corpuscular Hemoglobin 33.8 PG Mean Corpuscular Hemoglobin 35.3 % Concent Red Cell Distribution Width 13.6 % Platelet Count 269 TH/MM3 Mean Platelet Volume 10.4 FL Neutrophils (%) (Auto) 58.2 % Lymphocytes (%) (Auto) 27.1 % Monocytes (%) (Auto) 9.3 % Eosinophils (%) (Auto) 4.0 % Basophils (%) (Auto) 1.4 % Neutrophils # (Auto) 5.4 TH/MM3 Lymphocytes # (Auto) 2.5 TH/MM3 Monocytes # (Auto) 0.9 TH/MM3 Eosinophils # (Auto) 0.4 TH/MM3 Basophils # (Auto) 0.1 TH/MM3 CBC Comment DIFF FINAL Differential Comment Urine Color YELLOW Urine Turbidity CLEAR Urine pH 5.5 Urine Specific [place] 1.014 Urine Protein NEG mg/dL Urine Glucose (UA) NEG mg/dL Urine Ketones NEG mg/dL Urine Occult Blood NEG Urine Nitrite NEG Urine Bilirubin NEG Urine Urobilinogen LESS THAN 2.0 MG/DL Urine Leukocyte Esterase NEG Urine RBC 1 /hpf Urine WBC 1 /hpf Urine Calcium Oxalate Crystals RARE /hpf Microscopic Urinalysis Comment CULT NOT INDICATED Urine Opiates Screen NEG Urine Barbiturates Screen NEG Urine Amphetamines Screen NEG Urine Benzodiazepines Screen NEG Urine Cocaine Screen NEG Urine Cannabinoids Screen NEG Sodium Level 137 MEQ/L Potassium Level 3.8 MEQ/L Chloride Level 104 MEQ/L Carbon Dioxide Level 25.7 MEQ/L Anion Gap 7 MEQ/L Blood Urea Nitrogen 10 MG/DL Creatinine 0.97 MG/DL Estimat Glomerular Filtration 79 ML/MIN Rate Random Glucose 84 MG/DL Calcium Level 9.0 MG/DL Total Bilirubin 0.7 MG/DL Aspartate Amino Transf 74 U/L (AST/SGOT) Alanine Aminotransferase 85 U/L (ALT/SGPT) Alkaline Phosphatase 94 U/L Total Protein 7.9 GM/DL Albumin 3.7 GM/DL [facility] Medical Decision Making Medical Screen Exam Complete: Yes Emergency Medical Condition: Yes Interpretation(s) EKG shows a sinus rhythm with no acute ischemic change. Differential Diagnosis Differential diagnosis includes but is not limited to depression with suicidal gesture, suicide attempt, suicidal ideation, attention seeking behavior. Narrative Course Patient presents to us under the Enrique Act for suicidal ideation. I will do a medical clearance exam. The psych screener will be consulted. CBC & BMP Diagram 11/21/16 13:20 11/21/16 14:10 LFTs are mildly elevated. Tox screen is negative. UA is negative. Patient is medically clear for psychiatric evaluation. Diagnosis Primary Impression: Suicidal ideation Additional Impression: Bipolar disorder current episode depressed Qualified Code: F31.5 - Bipolar disorder, current episode depressed, severe, with psychotic features Condition: Pennie Meyer MD Nov 21, 2016 13:09
[2016-11-21 13:36] LABS: AUTOMATED NEUTROPHIL # 5.4 TH/MM3 (1.8-7.7); BASOPHIL # 0.1 TH/MM3 (0-0.2); BASOPHIL % 1.4 % (0.0-2.0); EOSINOPHIL # 0.4 TH/MM3 (0-0.4); HEMATOCRIT 48.1 % (39.0-51.0); HEMO FLAGS DIFF FINAL; LYMPH % 27.1 % (9.0-44.0); LYMPHOCYTE # 2.5 TH/MM3 (1.0-4.8); MEAN CELL VOLUME 95.7 FL (80.0-100.0); MEAN CORPUSCULAR HEMOGLOBIN 33.8 PG (27.0-34.0); MEAN CORPUSCULAR HGB CONC 35.3 % (32.0-36.0); MONO % 9.3 % (0.0-8.0); NEUT % 58.2 % (16.0-70.0); PLATELET COUNT 269 TH/MM3 (150-450); RED BLOOD COUNT 5.02 MIL/MM3 (4.50-5.90); RED CELL DISTRIBUTION WIDTH 13.6 % (11.6-17.2); WHITE BLOOD COUNT 9.3 TH/MM3 (4.0-11.0)
[2016-11-21 14:36] LABS: BLOOD, URINE NEG (NEG); CALCIUM OXALATE CRYSTALS,URINE RARE /hpf; COMMENT (UR) CULT NOT INDICATED; CULTURE IF INDICATED CULT NOT INDICATED; GLUCOSE,URINE NEG (NEG); KETONE, URINE NEG (NEG); NITRITE,URINE NEG (NEG); PH, URINE 5.5 (5.0-8.5); URINE COLOR YELLOW (YELLW/STRAW)
[2016-11-21 14:40] LABS: AMPHETAMINE, URINE NEG (NEG); BARBITURATES, URINE NEG (NEG); COCAINE, URINE NEG (NEG)
[2016-11-21 14:54] LABS: ANION GAP 7 MEQ/L (5-15); AST (GOT) 74 U/L (15-37); BICARBONATE 25.7 MEQ/L (21.0-32.0); BLOOD UREA NITROGEN 10 MG/DL (7-18); CHLORIDE 104 MEQ/L (98-107); GLOMERULAR FILTRATION RATE 79 ML/MIN (>89); POTASSIUM 3.8 MEQ/L (3.5-5.1); SODIUM (NA) 137 MEQ/L (136-145)
[2016-11-21 14:57] LABS: ALKALINE PHOSPHATASE 94 U/L (45-117); ALT (GPT) 85 U/L (12-78); TOTAL BILIRUBIN ADULT 0.7 MG/DL (0.2-1.0)
[2016-11-21 17:37] VITALS: BP 174/90; PULSE 58; RESP 16; O2SAT 96
[2016-11-21] MEDS ORDERED: ARIP300I IM (18:44)
[2016-11-22 02:00] VITALS: BP 142/85; PULSE 60; RESP 18; O2SAT 97
[2016-11-22 06:28] VITALS: BP 113/71; PULSE 53; RESP 17; O2SAT 97
--- NOTE | 2016-11-22 11:54 | PD ---
History of Present Illness Chief Complaint: Psychiatric Symptoms Time Seen by Provider: 11:45 Travel History International Travel<30 Days: No Contact w/Intl Traveler<30days: No Known affected area: No Legal Status Legal Status: Enrique Act Enrique Act Signed By: TIFFANY REDDY [facility] [id number] [facility] Enrique Act Comment: 11-21-16 11:54 am History of Present Illness: History of Present Illness HPI Patient is a 56 year old male with history of bipolar disorder who presents to ED under a Enrique Act. Patient was a walk in to the [facility] outpatient clinic and was placed under a BA as he reported that for the previous 2 days he was experiencing increase in auditory hallucinations ans well as visual hallucinations . " He is seeing things like wiggles on the wall and the floor and the voices are saying it is time to . He also reported that he was not eating, not drinking fluids and not taking care of his needs. He presented tearful, depressed and despondent". He reported voices telling him that "it's time to ." . Patient was monitored in J pod. He slept well and was observed eating his meals with no difficulty. he presented no behavioral concerns. Medical record is reviewed. He has had several admissions to [facility] in the past year with his last being in october of 2016. At that time he presented with the same complaints and symptoms. Labs are unremarkable and negative for any substance of abuse. Patient is seen in J pod. Asleep but he awakens easily. He is disheveled in his appearance. His speech is clear and logical. Does not appear to be internally stimulated. Mood appears euthymic at this time. He tells me " I'm doing ok". He tells me that he is due for his Abilify injection and that it is scheduled for the 23 of November. In terms of hallucinations he reports that he is afraid that he may hear them again. 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 At this time he does not present any suicidal or homicidal ideation, intent or plan. PFSH Past Medical History Asthma: No Bipolar Disorder: Yes Anxiety: Yes Depression: Yes Heart Rhythm Problems: No Cardiac Catheterization: Yes Cardiovascular Problems: Yes High Cholesterol: Yes Chest Pain: Yes Congestive Heart Failure: Yes COPD: Yes Coronary Artery Disease: Yes Diminished Hearing: No Endocrine: No Genitourinary: No Headaches: Yes (per pt migraines since 1978) Hypertension: Yes Immune Disorder: No Implanted Vascular Access Dvce: Yes Musculoskeletal: No Neurologic: No Psychiatric: Yes (per pt 1978) Reproductive: No Respiratory: Yes Myocardial Infarction: Yes (X5) Sleep Apnea: No Past Surgical History Body Medical Devices: Stents Cardiac Surgery: Yes (9 cardiac stents ) Coronary Stent: Yes (9) Other Surgery: Yes (Stents) Psychiatric History Psychiatric History Hx Psychiatric Treatment: HX of BIPOAR D/O, DEPRESSION AND ANXIETY D/O. LAST [facility] ADMISSION OCTOBER 12 - 2016 ON [address]. SEEN AT [facility]. Jignesh attends [facility] program at the [facility] 5 days per week. History of Inpatient Treatment: Yes Guns or firearms in home: No Social History [facility]. Single male . Hx Alcohol Use: No Hx Tobacco Use: No Hx Substance Use: Yes Substance Use Type: Marijuana Hx of Substance Use Treatment: No Family Psychiatric History None reported Allergies-Medications (Allergen,Severity, Reaction): Coded Allergies: Cogentin (Verified Allergy, Severe, Irritability/Anxiety, 07/16/16) Violent behavior Benztropine (Verified Allergy, Unknown, 07/30/16) Haldol (Verified Allergy, Unknown, 07/16/16) Lisinopril (Verified Allergy, Unknown, 07/16/16) [place] (Verified Allergy, Unknown, 07/30/16) Niacin (Verified Allergy, Unknown, 07/30/16) Reported Meds & Prescriptions Reported Meds & Active Scripts Active Abilify (Aripiprazole) 30 Mg Tab 30 Mg PO DAILY 10 Days Reported Abilify Maintena ER Inj (Aripiprazole) 300 Mg Susp 300 Mg IM ONCE Loratadine 10 Mg Tab 10 Mg PO DAILY PRN Nitroglycerin SL (Nitroglycerin) 0.4 Mg Subl 0.4 Mg SL DIRECTED PRN ONE TABLET UNDER THE TONGUE NEEDED FOR CHEST PAIN, MAY REPEAT EVERY FIVE MINUTES FOR A TOTAL OF 3 DOSES OR CALL 911 IF NO RELIEF Trazodone (Trazodone HCl) 100 Mg Tab 100 Mg PO Lamotrigine 200 Mg Tab 200 Mg PO BID Isosorbide Mononitrate ER (Isosorbide Mononitrate) 30 Mg Keisha 15 Mg PO Metoprolol Succinate ER 24 HR (Metoprolol Succinate) 50 Mg Tab 50 Mg PO DAILY Atorvastatin (Atorvastatin Calcium) 80 Mg Tab 80 Mg PO HS Aspirin 325 Mg Tab 325 Mg PO DAILY Review of Systems Except as stated in HPI: all other systems reviewed are Neg Psychiatric: COMPLAINS OF: Hallucinations Exam Alert: Yes [place]: Person (ox4) Mood: Calm Affect: Euthymic Speech: Clear, Logical Eye Contact: Indirect Memory Intact: Comment (no impairment) Hallucinations: Other (none at present. Patient with chronic hallucinations) Delusions: No Suicidal: Ideation (none at present) Homicidal: Ideation (none) Insight/Judgement poor. not impaired MDM Medical Decision Making Medical Record Reviewed: Yes Assessment/Plan 56 year old male with hx of bipolar disorder and chronic hallucinations. He at this time does not meet criteria for BA and will be discharged. He has an appointment for his Abilify injection tomorrow. [facility] Orders Complete Blood Count With Diff (11/21/16 13:02) Comprehensive Metabolic Panel (11/21/16 13:02) Urinalysis - C+S If Indicated (11/21/16 13:02) Electrocardiogram (11/21/16 13:02) Psych Screen (11/21/16 13:02) Drug Screen, Random Urine (11/21/16 13:02) Diet Regular Basic (11/22/16 Breakfast) Diet Diabetic (11/22/16 Lunch) Results Vital Signs Date Time Temp Pulse Resp B/P Pulse Ox O2 Delivery O2 Flow Rate FiO2 11/22/16 06:28 53 17 113/71 97 Room Air 11/22/16 02:00 60 18 142/85 97 Room Air 11/21/16 17:37 58 16 174/90 96 11/21/16 13:03 98.2 60 16 138/86 95 Laboratory Tests Test 11/21/16 11/21/16 11/21/16 13:20 14:05 14:10 White Blood Count 9.3 Red Blood Count 5.02 Hemoglobin 17.0 Hematocrit 48.1 Mean Corpuscular Volume 95.7 Mean Corpuscular Hemoglobin 33.8 Mean Corpuscular Hemoglobin 35.3 Concent Red Cell Distribution Width 13.6 Platelet Count 269 Mean Platelet Volume 10.4 Neutrophils (%) (Auto) 58.2 Lymphocytes (%) (Auto) 27.1 Monocytes (%) (Auto) 9.3 Eosinophils (%) (Auto) 4.0 Basophils (%) (Auto) 1.4 Neutrophils # (Auto) 5.4 Lymphocytes # (Auto) 2.5 Monocytes # (Auto) 0.9 Eosinophils # (Auto) 0.4 Basophils # (Auto) 0.1 CBC Comment DIFF FINAL Differential Comment Urine Color YELLOW Urine Turbidity CLEAR Urine pH 5.5 Urine Specific [place] 1.014 Urine Protein NEG Urine Glucose (UA) NEG Urine Ketones NEG Urine Occult Blood NEG Urine Nitrite NEG Urine Bilirubin NEG Urine Urobilinogen LESS THAN 2.0 Urine Leukocyte Esterase NEG Urine RBC 1 Urine WBC 1 Urine Calcium Oxalate Crystals RARE Microscopic Urinalysis Comment CULT NOT INDICATED Urine Opiates Screen NEG Urine Barbiturates Screen NEG Urine Amphetamines Screen NEG Urine Benzodiazepines Screen NEG Urine Cocaine Screen NEG Urine Cannabinoids Screen NEG Sodium Level 137 Potassium Level 3.8 Chloride Level 104 Carbon Dioxide Level 25.7 Anion Gap 7 Blood Urea Nitrogen 10 Creatinine 0.97 Estimat Glomerular Filtration 79 Rate Random Glucose 84 Calcium Level 9.0 Total Bilirubin 0.7 Aspartate Amino Transf 74 (AST/SGOT) Alanine Aminotransferase 85 (ALT/SGPT) Alkaline Phosphatase 94 Total Protein 7.9 Albumin 3.7 Diagnosis Primary Impression: Bipolar disorder current episode depressed Ruled Out: Suicidal ideation Psychiatrically Cleared: Yes Med/ Other Pt Specific Info: No Change to Meds Disposition: 01 DISCHARGE HOME Condition: Stable Problem Qualifiers Primary Impression: Bipolar disorder current episode depressed Qualified Code: F31.5 - Bipolar disorder, current episode depressed, severe, with psychotic features Luciana Mcnamara Nov 22, 2016 11:54
--- NOTE | 2016-11-23 07:55 | EKG ---
Date Performed: 11/21/2016 Time Performed: 13:22:40 PTAGE: 56 years EKG: POSSIBLE ECTOPIC ATRIAL BRADYCARDIA PROBABLE INFERIOR MYOCARDIAL INFARCTION ABNORMAL ECG Co mpared to prior tracing no significant change PREVIOUS TRACING : 07/16/2016 10.40 DOCTOR: Mychal Pickett Interpretating Date/Time 11/23/2016 07:54:04
== END 2016-11-22 13:36 | disposition home or self-care (01) ==
LOC: NEPC 12:50 → NEPJ 11-22 13:36
DX: R45.851 Suicidal ideations (principal); F31.9 Bipolar disorder, unspecified; E78.00 Pure hypercholesterolemia, unspecified; I50.9 Heart failure, unspecified; J44.9 Chronic obstructive pulmonary disease, unspecified; I25.10 Atherosclerotic heart disease of native coronary artery without angina pectoris; I10 Essential (primary) hypertension; I25.2 Old myocardial infarction
CPT/HCPCS: 80053; 80307; 81001; 85025; 93005